=== PATIENT | male | born 1980 | race Caucasian/White ===

== ENCOUNTER 2017-08-21 13:41 | Emergency (ER) | payer SELFPAY ==
--- NOTE | 2017-08-21 15:59 | EDPHY ---
H & P Stated Complaint: Dental pain for "a while" Time Seen by Provider: 08/21/17 14:24 - Personal History Current Tetanus Diphtheria and Acellular Pertussis (TDAP): Yes Tetanus Vaccine Date: <10 YRS - Medical/Surgical History Other PMH: dental caries - Social History Smoking Status: Current every day smoker Constitutional: Initial Vital Signs Temperature (C) 36.6 C 08/21/17 13:45 Heart Rate 78 08/21/17 13:45 Respiratory Rate 16 08/21/17 13:45 Blood Pressure 121/88 H 08/21/17 13:45 O2 Sat (%) 95 08/21/17 13:45 O2 Delivery Mode Room Air Allergies/Adverse Reactions: No Known Allergies Allergy (Verified 08/21/17 13:48) Home Medications: Medication Instructions Recorded No Medications [NO [place] 1 e[place] [facility] [place] Cephalexin [Keflex (RX)] 500 mg PO TID #30 cap 08/21/17 Ibuprofen [Motrin] 800 mg PO Q8 #20 tab 08/21/17 Medical Decision Making ED Course/Re-evaluation: CHIEF COMPLAINT: Toothache HISTORY OF PRESENT ILLNESS: The patient is a 37 y/o male complaining of intermittent right upper tooth pain for the last few months that became constant last night around 22:00, about 18 hours ago. He has a history of similar tooth pain with extraction on the upper left previously treated with antibiotics with resolution of symptoms. He denies fever, chills, cough, cold, nausea, vomiting, diarrhea, urinary symptoms, or other infectious symptoms. No throat swelling or difficulty with swallowing or breathing. Denies further medical history. REVIEW OF SYSTEMS: A 10 point review of systems was performed and is negative with the exception of the elements mentioned in the history of present illness. PHYSICAL EXAM: HR, BP, O2 Sat, RR. Temp noted General Appearance: Alert, well hydrated, appropriate, and non-toxic appearing. Head: Atraumatic without scalp tenderness or obvious injury Eyes: Pupils equal, round, reactive to light and accommodation, EOMI, no trauma , no injection. Nose: Atraumatic, no rhinorrhea, clear. Throat: There is no erythema or exudates, no lesions, normal tonsils, mucus membranes moist. Poor dentition, missing teeth, no signs of abscess or tenderness on palpation. Neck: Supple Respiratory: No distress. Cardiovascular: Good capillary refill all extremities. Musculoskeletal: Normal active ROM of all extremities, atraumatic. Neurological: Alert, appropriate, and interactive. Nonfocal neuro exam. Skin: No rashes, good turgor, no nodules on palpation. PAST MEDICAL HISTORY: Carries PAST SURGICAL HISTORY: Noncontributory SOCIAL HISTORY: Transient. Single. DIFFERENTIAL DIAGNOSIS: The differential diagnosis for the patient's symptoms included but was not limited to dental infection, chronic carries, poor dental hygiene, dental abscess, viral syndrome, meningitis, and sepsis. MEDICAL DECISION MAKING: This is a 37 y/o male with poor dentition and history of dental infections who presents with a several month history of right upper dental pain that became constant last night. He denies any systemic infectious symptoms and has normal vitals here. No concern for sepsis or airway compromise currently. Plan for Keflex, ibuprofen, Vicodin prepack, and referral to [facility]. He is comfortable with this plan. Return precautions discussed. Departure - Departure Disposition: Home, Routine, Self-Care Clinical Impression: Tooth infection Condition: Good Instructions: Toothache (ED) Additional Instructions: 1. Take Keflex (antibiotic) as prescribed for tooth infection. Be sure to complete the entire prescription as this will treat the underlying cause of your pain. 2. Take 800mg ibuprofen every 6-8 hours for pain and inflammation over the next few days. 3. Use Vicodin as prescribed when needed for severe pain. You have been given a small prescription of this. We are not able to prescribe further narcotics from the ED for this. 4. Follow up with dentist in the next 1-2 days. You've been referred to [facility] for follow up. 5. Return to the ED for worsening of condition. Referrals: [facility] [Outside] - As per Instructions Prescriptions: Cephalexin [Keflex (RX)] 500 mg PO TID #30 cap Ibuprofen [Motrin] 800 mg PO Q8 #20 tab Report Scribed for: Chacorta Brown Report Scribed by: Cammie Rivera Date of Report: 08/21/17 Time of Report: 16:00
[2017-08-21] MEDS ORDERED: HYDROCOD/APAP 5/325 PREPACK#6 BTL TAKEHOME ONE (16:03)
[2017-08-21 16:19] VITALS: BP 129/74; PULSE 72; RESP 18; TEMP 98.2; O2SAT 98
== END 2017-08-21 16:19 | disposition home or self-care (01) ==
DX: K04.7 Periapical abscess without sinus (principal); F17.200 Nicotine dependence, unspecified, uncomplicated

== ENCOUNTER 2017-08-24 03:10 | Emergency (ER) | payer SELFPAY ==
[2017-08-24 03:19] VITALS: BP 123/89; PULSE 66; RESP 17; TEMP 97.3; O2SAT 98
--- NOTE | 2017-08-24 03:45 | EDPHY ---
H & P Stated Complaint: Toothache - Seen and D/C'ed on 08/21 Time Seen by Provider: 08/24/17 03:26 HPI/ROS: Chief Complaint: Dental pain HPI: 37-year-old male who is been having "tooth trouble "the last several months. He was seen here 2 days ago with pain in his right upper jaw. At that point he was given antibiotics and ibuprofen and a to go pack of narcotics. Patient was also referred to dental aid. He states he has not called the dentist. Tonight the pain is worse. He took the ibuprofen about an hour ago. Has not taken any of the Percocet he was sent home with. Is complaining of pain on the right side of his face going up to his head behind his ear. Does not hurt to open and close his jaw. No confusion, no neck pain or stiffness. No nausea or vomiting. ROS: 10 point Review of Systems is negative except as noted in the HPI. Physical Exam: General: Awake, alert, no acute distress Mouth: He has got poor dentition diffusely. Moderate tenderness to percussion in his right upper maxilla. He has no trismus. Neck: Supple, no meningismus, no lymphadenopathy Skin: No rash - Personal History Current Tetanus/Diphtheria Vaccine: Yes Current Tetanus Diphtheria and Acellular Pertussis (TDAP): Yes Tetanus Vaccine Date: <10 YRS - Medical/Surgical History Hx Asthma: Yes Hx Chronic Respiratory Disease: No Hx Diabetes: No Hx Cardiac Disease: No Hx Renal Disease: No Hx Cirrhosis: No Hx Alcoholism: No Hx HIV/AIDS: No Hx Splenectomy or Spleen Trauma: No Other PMH: dental caries. - Social History Smoking Status: Heavy smoker Constitutional: Initial Vital Signs Temperature (C) 36.3 C 08/24/17 03:16 Heart Rate 66 08/24/17 03:16 Respiratory Rate 17 08/24/17 03:16 Blood Pressure 123/89 H 08/24/17 03:16 O2 Sat (%) 98 08/24/17 03:16 O2 Delivery Mode Room Air Allergies/Adverse Reactions: No Known Allergies Allergy (Verified 08/21/17 13:48) Home Medications: Medication Instructions Recorded No Medications [NO HOME 1 ea [facility] 02/29/12 MEDICATIONS] Cephalexin [Keflex (RX)] 500 mg PO TID #30 cap 08/21/17 Ibuprofen [Motrin] 800 mg PO Q8 #20 tab 08/21/17 Medical Decision Making ED Course/Re-evaluation: 37-year-old with dental pain. Was seen 2 days ago for the same. He has not followed up with dental aid as instructed. He is also not optimizing his oral analgesia. There is no findings suggestive of acute intracranial infection or process at this time. He is actually feeling better after taking the ibuprofen an hour ago. Will discharge him with instructions to call dental aid later this morning for an appointment. He can also take the Percocet that he was sent home with. Departure - Departure Disposition: Home, Routine, Self-Care Clinical Impression: Pain, dental Condition: Good Instructions: Toothache (ED) Additional Instructions: Follow up with dental aid today, call them 1st thing this morning for an appointment. Take the medications as prescribed by Dr. Brown 2 days ago. Return for increasing pain, fevers, chills, nausea, vomiting, or any other concerns. Referrals: [facility] [Outside] - As per Instructions
== END 2017-08-24 04:01 | disposition home or self-care (01) ==
DX: K08.89 Other specified disorders of teeth and supporting structures (principal); J45.909 Unspecified asthma, uncomplicated; F17.200 Nicotine dependence, unspecified, uncomplicated